=== PATIENT | female | born 1945 | race Caucasian/White ===

== ENCOUNTER 2017-06-15 19:01 | Inpatient (IN) | payer OTHER, MEDICAID ==
[2017-06-14 22:30] VITALS: BP 138/81
[~2017-06-15] VITALS: Ht 172.7 cm; Wt 63.5 kg
[~2017-06-15 19:01] MED LIST: DIPH25CA49 PO; PANT40TA2 PO
--- NOTE | 2017-06-15 19:10 | NUR ---
71 yo female bb ra from [facility]. patient is alert and oriented x 3, c/o mechanical ground level fall. patient DS to er bed, skin warm and dry, resp even and unlabored. patient placed on cardiac montior. awaiting order sfrom provider, will continue to monitor
--- NOTE | 2017-06-15 19:24 | NUR ---
20g right hand iv started, blood sample obtained and sent to lab
[2017-06-15 19:33] LABS: BASOPHILS # (AUTO) 0.1 /CMM (0.0-0.2); EOSINOPHILS % (AUTO) 0.8 % (0.0-6.0); HEMATOCRIT 36 % (33-45); HEMOGLOBIN 12.6 g/dL (11.5-14.8); LYMPHOCYTES # (AUTO) 0.9 /CMM (0.8-4.8); LYMPHOCYTES % (AUTO) 6.4 % (20.0-44.0); MEAN CORPUSCULAR HGB CONC 35 g/dl (31.0-36.0); MEAN CORPUSCULAR VOLUME 91 fL (82-100); MONOCYTES # (AUTO) 1.2 /CMM (0.1-1.30); MONOCYTES % (AUTO) 8.3 % (2.0-12.0); NEUTROPHILS # (AUTO) 12.2 /CMM (1.8-8.9); NEUTROPHILS % (AUTO) 83.5 % (43.0-81.0); PLATELET COUNT (AUTO) 301 /CMM (150-450); RDW COEFFICIENT OF VARIATION 13.6 (11.5-15.0); RED BLOOD CELL COUNT(AUTO) 3.99 MIL/uL (4.0-5.2); WHITE BLOOD COUNT (AUTO) 14.5 K/uL (4.3-11.0)
--- NOTE | 2017-06-15 19:48 | NUR ---
ASSISTED PT TO [facility]
[2017-06-15 19:55] LABS: CALCIUM, SERUM 9.2 mg/dL (8.5-10.1); CARBON DIOXIDE 28 mmol/L (21-32); CHLORIDE 105 mmol/L (98-107); CREATININE 0.9 mg/dL (0.6-1.3); GLUCOSE 150 mg/dL (74-106); POTASSIUM 3.3 mmol/L (3.5-5.1); SODIUM SERUM 141 mmol/L (136-145); UREA NITROGEN, BLOOD 13 mg/dL (7-18)
[2017-06-15 19:58] LABS: INR 0.96 (0.85-1.15)
[2017-06-15 20:01] LABS: ALANINE AMINOTRANSFERASE 25 U/L (12-78); ALBUMIN 3.2 g/dL (3.4-5.0); ALKALINE PHOSPHATASE 78 U/L (46-116); ASPARTATE AMINOTRANSFERASE 19 U/L (15-37); BILIRUBIN,DIRECT 0.2 mg/dL (0.0-0.2); BILIRUBIN,TOTAL 0.6 mg/dL (0.2-1.0); TOTAL PROTEIN, SERUM 7.9 g/dL (6.4-8.2)
[2017-06-15 20:03] LABS: TROPONIN I < 0.017 ng/mL (0.00-0.056)
--- NOTE | 2017-06-15 20:56 | NUR ---
TELE 306-1 FOR SYNCOPE, CORY MAYNARD DYE RANGE FEEDER ADMITTING
[2017-06-15] MEDS ORDERED: ONDANSETRON HCL/PF 4 MG/2 ML VIAL IVP PRN (21:00)
[2017-06-15] MEDS ORDERED: POTASSIUM CHLORIDE 20 MEQ TAB.PRT.SR PO ONE (21:00)
[2017-06-15 21:19] LABS: APPEARANCE,URINE SL CLOUDY (CLEAR); BILIRUBIN,URINE NEGATIVE (NEGATIVE); BLOOD, URINE 2+ Ery/uL (NEGATIVE); COLOR,URINE YELLOW (YELLOW); KETONES,URINE NEGATIVE (NEGATIVE); LEUKOCYTE ESTERASE ,URINE 3+ (NEGATIVE); NITRITE, URINE POSITIVE (NEGATIVE); PROTEIN,URINE 1+ mg/dl (NEGATIVE); UGLUCOSE NEGATIVE (NEGATIVE); UROBILINOGEN,URINE 0.2 EU/dL (0.2)
--- NOTE | 2017-06-15 21:20 | NUR ---
EMERGENCY MANAGEMENT DIRECTOR ADMIT NOTES PATIENT RECEIVED IN THE UNIT VIA GURNEY, ACCOMPANIED BY ER STAFF, TRANSFERRED TO BED SAFELY, UNABLE TO AMBULATE AT THIS TIME. PATIENT IS ALERT AND ORIENTED X 3 BUT IS NOTED WITH FORGETFULNESS. PT IS BREATHING EVEN AND UNLABORED, NO SOB NOTED AND IN NO ACUTE DISTRESS. ORIENTED PT TO UNIT, ROOM, ADMISSION PROCESS, CALL LIGHT AND USE OF CALL LIGHT, PT VERBALIZED UNDERSTANDING. UNABLE TO PERFORM THOROUGH BODY SKIN CHECK D/T PATIENT REFUSED TO CHANGE INTO A HOSPITAL GOWN AND FOR HER SKIN TO BE CHECKED. PATIENT ALSO REFUSED FOR HER BELONGINGS TO BE CHECKED. EXPLAINED RISKS AND BENEFITS TO PT BUT PT CONTINUES TO REFUSE. RESPECTED PT'S DECISION. ALL PATIENT'S NEEDS ATTENDED TO. CALL LIGHT PLACED WITHIN EASY REACH, SAFETY PRECAUTIONS IN PLACE. WILL CONTINUE TO MONITOR PT.
--- NOTE | 2017-06-15 21:26 | NUR ---
TRANSPORTED PT TO TELE BED WITHOUT INCIDENT
[2017-06-15 21:35] LABS: BACTERIA,URINE Many /HPF (None Seen); SQUAMOUS EPITHELIAL CELL,UR Few /HPF (None Seen); WBC,URINE 51-80 /HPF (0-3)
[2017-06-15] MEDS: ACETAMINOPHEN 325 MG TABLET PO PRN (21:51)
[2017-06-15] MEDS ORDERED: CEFTRIAXONE 1 G VIAL ONE (22:52)
[2017-06-15] MEDS ORDERED: CEFTRIAXONE 1 G in IV D5W 50 ML IV SCH (23:00)
[2017-06-16] VITALS: BP 108/62
[2017-06-16 04:00] VITALS: BP 156/92
--- NOTE | 2017-06-16 05:30 | NUR ---
RN NOTE RECEIVED REPORT FROM GEOSPATIAL DEVELOPER THAT PT REFUSED BLOOD DRAW. EXPLAINED RISKS AND BENEFITS TO PATIENT X 3 BUT PT CONTINUES TO REFUSE. RESPECTED PT'S DECISION. LAB WILL SEND ANOTHER GEOSPATIAL DEVELOPER AFTER BREAKFAST TO TRY AGAIN.
--- NOTE | 2017-06-16 06:14 | NUR ---
RN NOTES RECEIVED REPORT FROM USINE IO THAT PATIENT WITH AN EPISODE OF SVT @ 162 BPM. UPON ASSESSMENT, PT IN NO ACUTE DISTRESS, INFORMED THE PATIENT THAT I NEED TO CHECK HER BP BUT PATIENT VERBALIZED THAT SHE IS TRYING TO SLEEP AND TO NOT DISTURB HER AND SAID "NO." EXPLAINED RISKS AND BENEFITS TO PATIENT BUT PT INSISTS THAT SHE IS OKAY. RESPECTED PATIENT'S DECISION. CALLED [facility] TO PAGE UPPER MARKER MD. AWAITING FOR CALL BACK.
--- NOTE | 2017-06-16 06:51 | NUR ---
RN NOTES RECEIVED CALL FROM DR. BUCKNER, WITH NO NEW ORDERS. WILL CONTINUE TO MONITOR PT.
--- NOTE | 2017-06-16 06:54 | NUR ---
POLLUTION CONTROL CHEMIST CLOSING NOTES PATIENT ASLEEP IN BED, EASILY AROUSABLE AND VERBALLY RESPONSIVE,ALERT AND ORIENTED X 3, NO SOB NOTED, BREATHING EVEN AND UNLABORED AND IN NO ACUTE DISTRESS. PT ON TELE MONITORING WITH EPISODE OF SINUS VENTRICULAR TACHYCARDIA DURING THE SUPERVISOR SPRING UP, NOW AT SINUS RHYTHM . PT IN STABLE CONDITION, ALL NEEDS ATTENDED TO THROUGHOUT THE SHIFT. PLACED BED IN LOW POSITION AND LOCKED IN PLACE. CALL LIGHT WITHIN EASY REACH.WILL ENDORSE TO AM SHIFT NURSE FOR CONTINUITY OF CARE.
[2017-06-16] MEDS ORDERED: PANTOPRAZOLE 40 MG TABLET.DR PO SCH (07:30)
[2017-06-16 08:00] VITALS: BP 140/89
--- NOTE | 2017-06-16 08:00 | NUR ---
ms rn received on bed, awake,alert,oriented x3,not in any form of distress,respirations even and unlabored,no sob noted, s/p fall w/ skin tear at nose and face area, denies pain at this time, will monitor patient.
--- NOTE | 2017-06-16 08:30 | NUR ---
ms rn breakfast served, tolerated well, refused blood draw 2x, tried to convince, but still insisting.
[2017-06-16] MEDS ORDERED: IV NS 0.9% 1,000 ML IV PRN (08:34)
[2017-06-16] MEDS: POTASSIUM CHLORIDE 20 MEQ TAB.PRT.SR PO SCH ×2 (09:47→12:27)
--- NOTE | 2017-06-16 12:28 | NUR ---
WOUND CARE CONSULT: PT PRESENTS WITH FACIAL INJURIES WHICH WERE CLOSED WITH SKIN GLUE AND STERI STRIPS. NO DRAINAGE NOTED. ALL SKIN PROTECTION MEASURES IN PLACE AND DISCUSSED WITH NURSING STAFF. CURRENT ESTHER SCORE IS 16. WILL SEE PRN. CAMPBELL IN AGREEMENT WITH PLAN OF CARE. Addendum: 06/16/17 at 1230 by CORNEL CASIANO WNDNU Amended: Links added.
[2017-06-16] MEDS ORDERED: Z GUARD REMEDY 2 OZ OINT TP PRN (12:30)
[2017-06-16] MEDS ORDERED: ACET325T53 PO (14:28)
[2017-06-16] MEDS ORDERED: ONDA4VIA23 IVP (14:28)
[2017-06-16] MEDS ORDERED: CEFT1FRO2 IV (14:28)
[2017-06-16] MEDS ORDERED: PANT40TA2 PO (14:28)
[2017-06-16] MEDS ORDERED: NEOMY SULF/BACITRAC ZN/POLY 15 GM TUBE TP SCH (16:00)
--- NOTE | 2017-06-16 16:00 | NUR ---
ms [facility] called, to be transferred soon to their hospital.
[2017-06-16 16:27] VITALS: BP 149/94
[2017-06-16] MEDS: ACETAMINOPHEN 325 MG TABLET PO PRN (17:08)
--- NOTE | 2017-06-16 19:29 | NUR ---
ms rn [facility] refused to sign [facility] paper but agreed to be transferred, 2 rn signed.
== END 2017-06-16 19:00 | disposition short-term general hospital (02) | DRG 59 ==
LOC: ER 19:02 → TELE 21:05 → MED 06-16 11:21
PROVIDERS: ADMIT Nurse Practitioner Acute Care; ATTEND Nurse Practitioner Acute Care
DX: G35 Multiple sclerosis (principal); N39.0 Urinary tract infection, site not specified; E03.9 Hypothyroidism, unspecified; S01.21XA Laceration without foreign body of nose, initial encounter; S01.112A Laceration without foreign body of left eyelid and periocular area, initial encounter; J34.1 Cyst and mucocele of nose and nasal sinus; E87.6 Hypokalemia; W18.30XA Fall on same level, unspecified, initial encounter; Y92.009 Unspecified place in unspecified non-institutional (private) residence as the place of occurrence of the external cause; Z98.890 Other specified postprocedural states; Z90.710 Acquired absence of both cervix and uterus; Z87.891 Personal history of nicotine dependence; M81.0 Age-related osteoporosis without current pathological fracture; I10 Essential (primary) hypertension; Z88.5 Allergy status to narcotic agent; Z79.899 Other long term (current) drug therapy; Z86.73 Personal history of transient ischemic attack (TIA), and cerebral infarction without residual deficits; R73.9 Hyperglycemia, unspecified; R22.0 Localized swelling, mass and lump, head; Z86.59 Personal history of other mental and behavioral disorders
CPT/HCPCS: 36415; 70450-TC; 71045-TC; 80048-TC; 80076-TC; 81000-TC; 84484-TC; 85025-TC; 85730-TC; 87081-TC; 87086-TC; 87186-TC; 93307-TC; A4606; A6402; A6403; J0696; J7030; J7050; J7060; Z7610